=== PATIENT | male | born 1980 | race Caucasian/White ===

== ENCOUNTER 2016-07-18 17:33 | Inpatient (IN) | payer OTHER ==
[~2016-07-18] VITALS: Ht 185.4 cm; Wt 127.2 kg
[2016-07-18 19:00] LABS: BASO # 0.1 x10^3/uL (0.0-0.2); BASO % 2 % (0-3); EOS % 3 % (0-3); HEMATOCRIT 44.6 % (39.0-53.0); HEMOGLOBIN 15.5 g/dL (13.0-17.5); LYMPH % 22 % (24-48); MEAN CORPUSCULAR HEMOGLOBIN 29 pg (25-35); MEAN CORPUSCULAR HGB CONC 35 g/dL (31-37); MEAN CORPUSCULAR VOLUME 84 fL (79-100); MONO % 8 % (0-9); NEUT % 66 % (31-73); PLATELET COUNT 230 x10^3/uL (140-400); RED BLOOD COUNT 5.32 x10^6/uL (4.30-5.70); RED CELL DISTRIBUTION WIDTH 14.1 % (11.5-14.5); WHITE BLOOD COUNT 9.1 x10^3/uL (4.0-11.0)
[2016-07-18] MEDS ORDERED: LIDO:MAALOX:DONNATAL 1:1:1 15 ML SINGLE DOSE SWSW ONE (19:00)
[2016-07-18] MEDS ORDERED: LABETALOL 20 MG/4 ML DISP.SYRIN. IVP ONE (19:00)
[2016-07-18 19:06] LABS: CALCIUM 8.9 mg/dL (8.5-10.1); CREATININE 0.8 mg/dL (0.7-1.3); GFR 111.3; POTASSIUM 3.6 mmol/L (3.5-5.1)
[2016-07-18 19:16] LABS: ALBUMIN 3.9 g/dL (3.4-5.0); TOTAL BILIRUBIN 0.4 mg/dL (0.2-1.0); TOTAL PROTEIN 7.9 g/dL (6.4-8.2)
[2016-07-18 19:20] LABS: % EOS 2 % (0-5)
[2016-07-18 19:21] LABS: PLT ESTIMATE ADEQUATE (ADEQUATE)
[2016-07-18] MEDS ORDERED: hydrALAZINE 20 MG/ML VIAL. IVP ONE (20:30)
[2016-07-18] MEDS: NICARDIPINE HCL 50 MG in IV NORMAL SALINE 250ML 250 ML IV PRN (21:10)
--- NOTE | 2016-07-18 21:19 | PHYS DOC ---
Past Medical History Past Medical History: No Pertinent History Past Surgical History: No Surgical History Alcohol Use: None Drug Use: None Adult General Chief Complaint Chief Complaint: CHEST PAIN HPI HPI Patient is a 35 year old obese male who denies any chronic medical history who presents complaining of chest pain for 2 days. Yesterday the pain was a sharp pain in the right side of his chest. Today it is migrated to the middle of his chest just above the epigastric region. Pain is worse with deep breathing and movement of torso. 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 He has a mild cough. Denies shortness of breath, fever , nausea, vomiting, diarrhea, confusion, headache, blurry vision, motor weakness , or sensory loss. His blood pressure is very high. He was seen in the emergency department here previously and his blood pressure was high at that time he was instructed to follow up with the primary care doctor, which she never did. He denies the use of illicit drugs, alcohol, or tobacco. Remaining relatively still seems to make his pain better. Review of Systems Review of Systems Constitutional: Denies fever or chills Eyes: Denies change in visual acuity, redness, or eye pain HENT: Denies nasal congestion or sore throat Respiratory: Denies cough or shortness of breath Cardiovascular: Reports chest pain. Denies palpitations. GI: Denies abdominal pain, nausea, vomiting, bloody stools or diarrhea : Denies dysuria or hematuria Musculoskeletal: Denies back pain or joint pain Integument: Denies rash or skin lesions Neurologic: Denies headache, focal weakness or sensory changes Current Medications Current Medications Current Medications Medications (Trade) Dose Ordered Sig/Connie Start Time Stop Time Status Last Admin Dose Admin Hydralazine HCl 10 mg 10 mg 1X ONCE 07/18/16 20:30 07/18/16 20:32 DC 07/18/16 20:39 10 MG Labetalol HCl (Normodyne) 20 mg 1X ONCE 07/18/16 19:00 07/18/16 19:01 DC 07/18/16 19:12 20 MG Multi-Ingredient Mouthwash/Gargle (Gi Cocktail Single Dose) 15 ml 1X ONCE 07/18/16 19:00 07/18/16 19:01 DC 07/18/16 19:11 15 ML Nicardipine HCl/ Sodium Chloride (Cardene/Iv Sodium Chloride 0.9% 250ml) 270 ml @ 0 mls/hr CONT PRN 07/18/16 21:00 07/18/16 21:10 5 MLS/HR Allergies Allergies Allergies Coded Allergies Type Severity Reaction Last Updated Verified No Known Drug Allergies 09/07/15 No Physical Exam Physical Exam Constitutional: Well developed, well nourished, no acute distress, non-toxic appearance. HENT: Normocephalic, atraumatic, bilateral external ears normal, oropharynx moist, no oral exudates, nose normal. Eyes: PERRLA, EOMI, conjunctiva normal, no discharge. Neck: Normal range of motion, no tenderness, supple, no stridor. Cardiovascular:Heart rate regular rhythm, no murmur Lungs & Thorax: Bilateral breath sounds clear to auscultation. Reproducible chest wall tenderness around the lower sternum. Abdomen: Bowel sounds normal, soft, no tenderness, no masses, no pulsatile masses. Skin: Warm, dry, no erythema, no rash. Back: No tenderness, no CVA tenderness. Extremities: No tenderness, no cyanosis, no clubbing, ROM intact. Trace edema bilateral lower legs. Neurologic: Alert and oriented X 3, normal motor function, normal sensory function, no focal deficits noted. Psychologic: Affect normal, judgement normal, mood normal. Current Patient Data Vital Signs Vital Signs Date Time Temp Pulse Resp B/P Pulse Ox O2 Delivery O2 Flow Rate FiO2 07/18/16 20:39 80 194/114 07/18/16 20:12 16 97 Room Air 07/18/16 18:15 98.0 98.0 Lab Values Laboratory Tests Test 07/18/16 18:40 White Blood Count 9.1x10^3/uL (4.0-11.0) Red Blood Count 5.32x10^6/uL (4.30-5.70) Hemoglobin 15.5g/dL (13.0-17.5) Hematocrit 44.6% (39.0-53.0) Mean Corpuscular Volume 84fL (79-100) Mean Corpuscular Hemoglobin 29pg (25-35) Mean Corpuscular Hemoglobin Concent 35g/dL (31-37) Red Cell Distribution Width 14.1% (11.5-14.5) Platelet Count 230x10^3/uL (140-400) Neutrophils (%) (Auto) 66% (31-73) Lymphocytes (%) (Auto) 22% (24-48) L Monocytes (%) (Auto) 8% (0-9) Eosinophils (%) (Auto) 3% (0-3) Basophils (%) (Auto) 2% (0-3) Neutrophils # (Auto) 6.1x10^3uL (1.8-7.7) Lymphocytes # (Auto) 2.0x10^3/uL (1.0-4.8) Monocytes # (Auto) 0.7x10^3/uL (0.0-1.1) Eosinophils # (Auto) 0.2x10^3/uL (0.0-0.7) Basophils # (Auto) 0.1x10^3/uL (0.0-0.2) Segmented Neutrophils % 76% (35-66) H Band Neutrophils % 3% (0-9) Lymphocytes % 15% (24-48) L Monocytes % 4% (0-10) Eosinophils % 2% (0-5) Platelet Estimate Adequate (ADEQUATE) Sodium Level 141mmol/L (136-145) Potassium Level 3.6mmol/L (3.5-5.1) Chloride Level 105mmol/L (98-107) Carbon Dioxide Level 29mmol/L (21-32) Anion Gap 7 (6-14) Blood Urea Nitrogen 19mg/dL (8-26) Creatinine 0.8mg/dL (0.7-1.3) Estimated GFR (Cockcroft-Gault) 111.3 BUN/Creatinine Ratio 24 (6-20) H Glucose Level 89mg/dL (70-99) Calcium Level 8.9mg/dL (8.5-10.1) Total Bilirubin 0.4mg/dL (0.2-1.0) Aspartate Amino Transferase (AST) 25U/L (15-37) Alanine Aminotransferase (ALT) 55U/L (16-63) Alkaline Phosphatase 135U/L (46-116) H Troponin I Quantitative 0.027ng/mL (0.000-0.055) Total Protein 7.9g/dL (6.4-8.2) Albumin 3.9g/dL (3.4-5.0) Albumin/Globulin Ratio 1.0 (1.0-1.7) Lipase 133U/L (73-393) Laboratory Tests 07/18/16 18:40 Laboratory Tests 07/18/16 18:40 EKG EKG EKG: Sinus rhythm. Left axis deviation. Incomplete right bundle branch block. T-wave inversion in V6, aVL, and possibly I. No acute ST segment elevation or depression. EKG interpreted by me. Radiology/Procedures Radiology/Procedures Chest x-ray, AP single view: No acute infiltrate, effusion, or pneumothorax. Normal cardiomediastinal silhouette. Normal bony anatomy. No acute findings in chest. X-ray interpreted by me. Course & Med Decision Making Course & Med Decision Making Pertinent Labs and Imaging studies reviewed. (See chart for details) Patient has severely elevated blood pressures. He is still dangerously hypertensive even after 20 mg IV labetalol 10 mg IV hydralazine. His chest pain sounds somewhat musculoskeletal and/or pleuritic in nature, but given his dangerously elevated blood pressures I believe he will require admission to the hospital. I started him on nicardipine drip for blood pressure control. I discussed this case with Dr. Lisa who agreed to admit the patient for further management. His EKG showed some possible T wave inversions in the lateral leads. Otherwise, EKG looked okay. His first troponin is not elevated above the cutoff. Chest x-ray is unrevealing. The rest of his labs are fairly unremarkable. Dragon Disclaimer Dragon Disclaimer This electronic medical record was generated, in whole or in part, using a voice recognition dictation system. Departure Departure Impression: Primary Impression: Malignant essential hypertension Disposition: 09 ADMITTED INPATIENT Admitting Physician: Other Condition: STABLE Referrals: NO PCP (PCP) AUNDREA CASILLAS MD Jul 18, 2016 18:56
[2016-07-18] MEDS ORDERED: ONDANSETRON PF 4 MG/2 ML VIAL. IV PRN (21:30)
--- NOTE | 2016-07-18 22:27 | ACF ---
Admission Forms Criteria HYPERTENSION Clinical Indications for Admission to Inpatient Care ( Place "X" for any and all applicable criteria): Admission is indicated for ANY ONE of the following(1)(2)(3)(4): [ ]I. Hypertensive emergency, with evidence of acute and progressing target organ disease as indicated by ANY ONE of the following: [ ]a) Hypertensive encephalopathy (eg, confusion, altered mental status) [ ]b) Cerebral infarction [ ]c) Intracranial hemorrhage [ ]d) Myocardial ischemia or infarction [ ]e) Pulmonary edema [ ]f) Aortic dissection [ ]g) Seizure [ ]h) Acute renal insufficiency [ ]i) Papilledema [ ]j) Microangiopathic hemolytic anemia [ ]II. Adrenergic crisis (eg, severe hypertension due to pheochromocytoma crisis, cocaine or amphetamine intoxication, or clonidine withdrawal) [X]III. Severe hypertension (SBP greater than 180 mmHg or DBP greater than 110 mmHg or greater than the 95th percentile for age, gender, and height in pediatric patients) that cannot be controlled (eg, to SBP less than 160 mmHg and DBP less than 100 mmHg in adults) by treatment with oral medication in emergency department or observation care Extended stay beyond goal length of stay may be needed for(11)(12)(13): [ ]a) Persistent hypertensive encephalopathy [ ]b) Continuation of pulmonary edema [ ]c) Recurring or persistent severe hypertension [ ]d) Target organ damage (eg, angina, stroke, aortic dissection) [ ]e) Associated renal insufficiency The original [facility] content created by [employer] has been revised. The portions of the content which have been revised are identified through the use of italic text or in bold, and [facility] has neither reviewed nor approved the modified material. All other unmodified content is copyright [facility]. Please see references footnoted in the original [facility] edition 2016 Admission Criteria Met?: Yes XIMENA DOWNS Jul 18, 2016 22:27
[2016-07-18 23:00] VITALS: BP 208/113
[2016-07-18 23:15] VITALS: BP 222/113
[2016-07-18 23:30] VITALS: BP 180/84
[2016-07-18 23:45] VITALS: BP 173/85
[2016-07-19] VITALS (34 sets, daily range): BP systolic 133–192; BP diastolic 65–103
[2016-07-19] MEDS: NICARDIPINE HCL 50 MG in IV NORMAL SALINE 250ML 250 ML IV PRN (03:11)
--- NOTE | 2016-07-19 06:55 | EKG ---
[facility] [address] [place] [address] Test Date: 2016-07-18 Test Time: 18:12:02 Pat Name: ANDRE BOO Department: Room: 104 1 Gender: M Computer Repairer: : 1980 Requested By: AUNDREA CASILLAS Order Number: [id number] Reading MD: Zhane Rousseau Measurements Intervals [place] Rate: 93 P: -1 TN: 124 QRS: -7 QRSD: 108 T: 61 QT: 346 QTc: 433 Interpretive Statements SINUS RHYTHM LEFT ATRIAL ABNORMALITY LEFTWARD AXIS ABNORMAL ECG RI6.01 No previous ECG available for comparison Electronically Signed On 07-21-2016 0:23:20 RESIDENT SERVICES MANAGER by Zhane Rousseau
[2016-07-19] MEDS: AMLODIPINE BESYLATE 10 MG TABLET PO SCH (08:53)
--- NOTE | 2016-07-19 09:20 | RAD ---
Portable chest, 07/18/2016: History: Chest pain Comparison is made to a study from 11/18/2007. The heart size and pulmonary vascularity are normal. No pulmonary infiltrates are seen. There is no evidence of pleural fluid. IMPRESSION: No acute cardiopulmonary abnormality is detected.
[2016-07-19] MEDS: METOPROLOL SUCC 24HR ER 50 MG TAB.ER.24H. PO SCH ×2 (14:00→21:18)
[2016-07-19] MEDS ORDERED: hydrALAZINE 20 MG/ML VIAL. IVP PRN (17:45)
[2016-07-20 03:50] VITALS: BP 160/93
[2016-07-20 07:00] VITALS: BP 166/101
[2016-07-20 07:18] LABS: BASO # 0.1 x10^3/uL (0.0-0.2); BASO % 1 % (0-3); EOS % 3 % (0-3); HEMATOCRIT 44.3 % (39.0-53.0); HEMOGLOBIN 14.9 g/dL (13.0-17.5); LYMPH # 1.6 x10^3/uL (1.0-4.8); LYMPH % 19 % (24-48); MEAN CORPUSCULAR HEMOGLOBIN 29 pg (25-35); MEAN CORPUSCULAR HGB CONC 34 g/dL (31-37); MEAN CORPUSCULAR VOLUME 85 fL (79-100); MONO % 7 % (0-9); NEUT % 70 % (31-73); PLATELET COUNT 248 x10^3/uL (140-400); RED BLOOD COUNT 5.22 x10^6/uL (4.30-5.70); WHITE BLOOD COUNT 8.6 x10^3/uL (4.0-11.0)
[2016-07-20 07:28] LABS: CALCIUM 9.1 mg/dL (8.5-10.1); GFR 86.1; POTASSIUM 3.6 mmol/L (3.5-5.1)
[2016-07-20 07:38] LABS: BARBITURATES NEG (NEG); BENZODIAZEPINES NEG (NEG); CANNABINOIDS NEG (NEG); COCAINE NEG (NEG); METHADONE NEG (NEG); OPIATES NEG (NEG); PHENCYCLIDINE NEG (NEG)
[2016-07-20 07:44] LABS: ETHANOL, URINE NEG (NEG)
[2016-07-20] MEDS: METOPROLOL SUCC 24HR ER 50 MG TAB.ER.24H. PO SCH (08:26)
[2016-07-20 08:27] VITALS: BP 166/101
[2016-07-20] MEDS: AMLODIPINE BESYLATE 10 MG TABLET PO SCH (08:27)
[2016-07-20] MEDS ORDERED: LISINOPRIL 10 MG TABLET PO SCH (09:00)
--- NOTE | 2016-07-20 09:15 | HP ---
ADMIT DATE: 07/19/2016 CHIEF COMPLAINT: Chest pain. HISTORY OF PRESENT ILLNESS: The patient is a pleasant, healthy 35-year-old male who presents to the ER with chest pain earlier this morning. He states it has been occurring for a couple of days, it was in his right chest. They migrate to the middle of his chest. He had some epigastric pain as well, it was worse with breathing. While in the ER, he was noted to have accelerated hypertension with pressures in the 240 range systolically. Troponins were slightly elevated at 0.027. He has now been admitted to the ICU where I examined him earlier this morning. PAST MEDICAL HISTORY: He denies any medical issues. ALLERGIES: None. FAMILY HISTORY: Hypertension. SOCIAL HISTORY: Does not drink, smoke or take drugs. MEDICATIONS: He is not on any medications. REVIEW OF SYSTEMS: GENERAL: No history of weight change, weakness or fevers. SKIN: No bruising, hair changes or rashes. EYES: No blurred, double or loss of vision. NOSE AND THROAT: No history of nosebleeds, hoarseness or sore throat. HEART: He complains of resolving chest pain. LUNGS: Denies cough, hemoptysis, wheezing or shortness of breath. GASTROINTESTINAL: Denies changes in appetite, nausea, vomiting, diarrhea or constipation. GENITOURINARY: No history of frequency, urgency, hesitancy or nocturia. NEUROLOGIC: Denies history of numbness, tingling, tremor or weakness. PSYCHIATRIC: No history of panic, anxiety or depression. ENDOCRINE: No history of heat or cold intolerance, polyuria or polydipsia. EXTREMITIES: Denies muscle weakness, joint pain, pain on walking or stiffness. PHYSICAL EXAMINATION: VITAL SIGNS: Temperature afebrile, pulse 90, respirations 18, blood pressure this morning was down to 165/93. He was on a Cardene drip. HEART: Distant S1, S2. LUNGS: Clear to auscultation. ABDOMEN: Soft, positive bowel sounds. EXTREMITIES: Trace edema. SKIN: No rashes. PSYCHIATRIC: He is anxious. VASCULAR: Good capillary refill. ENDOCRINE: No thyromegaly. LYMPHATICS: No cervical nodes. HEMATOPOIETIC: No bruising. LABORATORY DATA: Hematology normal. Electrolytes normal other than a BUN and creatinine ratio of 24. Alkaline phosphatase a little high at 135. Troponin was 0.027. It did bump this afternoon a little bit higher to 0.08. ASSESSMENT AND PLAN: Accelerated hypertension with an incidental finding of elevated troponins. The patient has been on a Cardene drip. I have started him on metoprolol and Norvasc that seems to be bringing his pressure down. Regarding the elevated cardiac enzymes, we will go ahead and consult cardiology, cardiac monitoring. We will adjust his antihypertensives as necessary. EVA GARDINER DO DR: PETER/soren JOB#: [id number] / [id number]
--- NOTE | 2016-07-20 10:24 | PDOC ---
PROGRESS NOTES Chief Complaint Chief Complaint chest pain -accelerated hypertension -mildly elevated troponin History of Present Illness History of Present Illness Patient sitting up in bed when evaluated this AM. Feels much improved. BP improved and chest pain resolved. Pt agreeable with plan to dc when cleared by cardiology. Prescriptions given for home management of BP, and stressed to the pt the importance of taking the medications as prescribed. Pt aware that uncontrolled BP could yield unfortunate consequences as the pt ages. Vitals Vitals Vital Signs Date Time Temp Pulse Resp B/P Pulse Ox O2 Delivery O2 Flow Rate FiO2 07/20/16 08:27 99 166/101 07/20/16 08:00 Room Air 07/20/16 07:00 98.2 18 96 98.2 Physical Exam General: Alert, Oriented X3, No acute distress Heart: Regular rate, Other (distant S1, S2) Lungs: Clear Abdomen: Normal bowel sounds, Soft, No tenderness Extremities: Other (trace edema) Skin: No significant lesion Labs LABS Laboratory Tests Test 07/20/16 03:00 07/20/16 05:45 Urine Opiates Screen Neg (NEG) Urine Methadone Screen Neg (NEG) Urine Barbiturates Neg (NEG) Urine Phencyclidine Screen Neg (NEG) Urine Amphetamine/Methamphetamine Neg (NEG) Urine Benzodiazepines Screen Neg (NEG) Urine Cocaine Screen Neg (NEG) Urine Cannabinoids Screen Neg (NEG) Urine Ethyl Alcohol Neg (NEG) White Blood Count 8.6x10^3/uL (4.0-11.0) Red Blood Count 5.22x10^6/uL (4.30-5.70) Hemoglobin 14.9g/dL (13.0-17.5) Hematocrit 44.3% (39.0-53.0) Mean Corpuscular Volume 85fL (79-100) Mean Corpuscular Hemoglobin 29pg (25-35) Mean Corpuscular Hemoglobin Concent 34g/dL (31-37) Red Cell Distribution Width 14.0% (11.5-14.5) Platelet Count 248x10^3/uL (140-400) Neutrophils (%) (Auto) 70% (31-73) Lymphocytes (%) (Auto) 19% (24-48) Monocytes (%) (Auto) 7% (0-9) Eosinophils (%) (Auto) 3% (0-3) Basophils (%) (Auto) 1% (0-3) Neutrophils # (Auto) 6.0x10^3uL (1.8-7.7) Lymphocytes # (Auto) 1.6x10^3/uL (1.0-4.8) Monocytes # (Auto) 0.6x10^3/uL (0.0-1.1) Eosinophils # (Auto) 0.3x10^3/uL (0.0-0.7) Basophils # (Auto) 0.1x10^3/uL (0.0-0.2) Sodium Level 142mmol/L (136-145) Potassium Level 3.6mmol/L (3.5-5.1) Chloride Level 104mmol/L (98-107) Carbon Dioxide Level 28mmol/L (21-32) Anion Gap 10 (6-14) Blood Urea Nitrogen 16mg/dL (8-26) Creatinine 1.0mg/dL (0.7-1.3) Estimated GFR (Cockcroft-Gault) 86.1 Glucose Level 94mg/dL (70-99) Calcium Level 9.1mg/dL (8.5-10.1) Review of Systems Review of Systems resolved chest pain denies fever, chills, SOA Assessment and Plan Assessmemt and Plan ASSESSMENT: -chest pain; resolved -accelerated hypertension; improved -mildly elevated troponin; cardiology following PLAN: - ok to dc when ok by cardiology; following cardiac markers - educated pt on the need to comply with BP med - home with Norvasc 10 mg qd - home with Metoprolol 50 mg bid - home with Lisinopril 10 mg qd - repeat labs if not dc'd - PT/OT as tolerated if not dc'd Problems: Comment Review of Relevant I have reviewed the following items leyla (where applicable) has been applied. Labs Laboratory Tests Test 07/18/16 18:40 07/18/16 23:00 07/19/16 03:17 07/19/16 09:05 White Blood Count 9.1x10^3/uL (4.0-11.0) Red Blood Count 5.32x10^6/uL (4.30-5.70) Hemoglobin 15.5g/dL (13.0-17.5) Hematocrit 44.6% (39.0-53.0) Mean Corpuscular Volume 84fL (79-100) Mean Corpuscular Hemoglobin 29pg (25-35) Mean Corpuscular Hemoglobin Concent 35g/dL (31-37) Red Cell Distribution Width 14.1% (11.5-14.5) Platelet Count 230x10^3/uL (140-400) Neutrophils (%) (Auto) 66% (31-73) Lymphocytes (%) (Auto) 22% (24-48) Monocytes (%) (Auto) 8% (0-9) Eosinophils (%) (Auto) 3% (0-3) Basophils (%) (Auto) 2% (0-3) Neutrophils # (Auto) 6.1x10^3uL (1.8-7.7) Lymphocytes # (Auto) 2.0x10^3/uL (1.0-4.8) Monocytes # (Auto) 0.7x10^3/uL (0.0-1.1) Eosinophils # (Auto) 0.2x10^3/uL (0.0-0.7) Basophils # (Auto) 0.1x10^3/uL (0.0-0.2) Segmented Neutrophils % 76% (35-66) Band Neutrophils % 3% (0-9) Lymphocytes % 15% (24-48) Monocytes % 4% (0-10) Eosinophils % 2% (0-5) Platelet Estimate Adequate (ADEQUATE) Sodium Level 141mmol/L (136-145) Potassium Level 3.6mmol/L (3.5-5.1) Chloride Level 105mmol/L (98-107) Carbon Dioxide Level 29mmol/L (21-32) Anion Gap 7 (6-14) Blood Urea Nitrogen 19mg/dL (8-26) Creatinine 0.8mg/dL (0.7-1.3) Estimated GFR (Cockcroft-Gault) 111.3 BUN/Creatinine Ratio 24 (6-20) Glucose Level 89mg/dL (70-99) Calcium Level 8.9mg/dL (8.5-10.1) Total Bilirubin 0.4mg/dL (0.2-1.0) Aspartate Amino Transf (AST/SGOT) 25U/L (15-37) Alanine Aminotransferase (ALT/SGPT) 55U/L (16-63) Alkaline Phosphatase 135U/L (46-116) Troponin I Quantitative 0.027ng/mL (0.000-0.055) 0.049ng/mL (0.000-0.055) 0.088ng/mL (0.000-0.055) Total Protein 7.9g/dL (6.4-8.2) Albumin 3.9g/dL (3.4-5.0) Albumin/Globulin Ratio 1.0 (1.0-1.7) Lipase 133U/L (73-393) Nasal Screen MRSA (PCR) Negative (Negative) Test 07/20/16 03:00 07/20/16 05:45 Urine Opiates Screen Neg (NEG) Urine Methadone Screen Neg (NEG) Urine Barbiturates Neg (NEG) Urine Phencyclidine Screen Neg (NEG) Urine Amphetamine/Methamphetamine Neg (NEG) Urine Benzodiazepines Screen Neg (NEG) Urine Cocaine Screen Neg (NEG) Urine Cannabinoids Screen Neg (NEG) Urine Ethyl Alcohol Neg (NEG) White Blood Count 8.6x10^3/uL (4.0-11.0) Red Blood Count 5.22x10^6/uL (4.30-5.70) Hemoglobin 14.9g/dL (13.0-17.5) Hematocrit 44.3% (39.0-53.0) Mean Corpuscular Volume 85fL (79-100) Mean Corpuscular Hemoglobin 29pg (25-35) Mean Corpuscular Hemoglobin Concent 34g/dL (31-37) Red Cell Distribution Width 14.0% (11.5-14.5) Platelet Count 248x10^3/uL (140-400) Neutrophils (%) (Auto) 70% (31-73) Lymphocytes (%) (Auto) 19% (24-48) Monocytes (%) (Auto) 7% (0-9) Eosinophils (%) (Auto) 3% (0-3) Basophils (%) (Auto) 1% (0-3) Neutrophils # (Auto) 6.0x10^3uL (1.8-7.7) Lymphocytes # (Auto) 1.6x10^3/uL (1.0-4.8) Monocytes # (Auto) 0.6x10^3/uL (0.0-1.1) Eosinophils # (Auto) 0.3x10^3/uL (0.0-0.7) Basophils # (Auto) 0.1x10^3/uL (0.0-0.2) Sodium Level 142mmol/L (136-145) Potassium Level 3.6mmol/L (3.5-5.1) Chloride Level 104mmol/L (98-107) Carbon Dioxide Level 28mmol/L (21-32) Anion Gap 10 (6-14) Blood Urea Nitrogen 16mg/dL (8-26) Creatinine 1.0mg/dL (0.7-1.3) Estimated GFR (Cockcroft-Gault) 86.1 Glucose Level 94mg/dL (70-99) Calcium Level 9.1mg/dL (8.5-10.1) Laboratory Tests Test 07/20/16 03:00 07/20/16 05:45 Urine Opiates Screen Neg (NEG) Urine Methadone Screen Neg (NEG) Urine Barbiturates Neg (NEG) Urine Phencyclidine Screen Neg (NEG) Urine Amphetamine/Methamphetamine Neg (NEG) Urine Benzodiazepines Screen Neg (NEG) Urine Cocaine Screen Neg (NEG) Urine Cannabinoids Screen Neg (NEG) Urine Ethyl Alcohol Neg (NEG) White Blood Count 8.6x10^3/uL (4.0-11.0) Red Blood Count 5.22x10^6/uL (4.30-5.70) Hemoglobin 14.9g/dL (13.0-17.5) Hematocrit 44.3% (39.0-53.0) Mean Corpuscular Volume 85fL (79-100) Mean Corpuscular Hemoglobin 29pg (25-35) Mean Corpuscular Hemoglobin Concent 34g/dL (31-37) Red Cell Distribution Width 14.0% (11.5-14.5) Platelet Count 248x10^3/uL (140-400) Neutrophils (%) (Auto) 70% (31-73) Lymphocytes (%) (Auto) 19% (24-48) Monocytes (%) (Auto) 7% (0-9) Eosinophils (%) (Auto) 3% (0-3) Basophils (%) (Auto) 1% (0-3) Neutrophils # (Auto) 6.0x10^3uL (1.8-7.7) Lymphocytes # (Auto) 1.6x10^3/uL (1.0-4.8) Monocytes # (Auto) 0.6x10^3/uL (0.0-1.1) Eosinophils # (Auto) 0.3x10^3/uL (0.0-0.7) Basophils # (Auto) 0.1x10^3/uL (0.0-0.2) Sodium Level 142mmol/L (136-145) Potassium Level 3.6mmol/L (3.5-5.1) Chloride Level 104mmol/L (98-107) Carbon Dioxide Level 28mmol/L (21-32) Anion Gap 10 (6-14) Blood Urea Nitrogen 16mg/dL (8-26) Creatinine 1.0mg/dL (0.7-1.3) Estimated GFR (Cockcroft-Gault) 86.1 Glucose Level 94mg/dL (70-99) Calcium Level 9.1mg/dL (8.5-10.1) Medications Current Medications Labetalol HCl (Normodyne) 20 mg 1X ONCE IVP Last administered on 07/18/16 19: 12; Start 07/18/16 at 19:00; Stop 07/18/16 at 19:01; Status DC Multi-Ingredient Mouthwash/Gargle (Gi Cocktail Single Dose) 15 ml 1X ONCE SWSW Last administered on 07/18/16 19:11; Start 07/18/16 at 19:00; Stop 07/18/16 at 19:01; Status DC Hydralazine HCl 10 mg 10 mg 1X ONCE IVP Last administered on 07/18/16 20:39; Start 07/18/16 at 20:30; Stop 07/18/16 at 20:32; Status DC Nicardipine HCl/ Sodium Chloride (Cardene/Iv Sodium Chloride 0.9% 250ml) 270 ml @ 0 mls/hr CONT PRN IV SEE I/O RECORD Last administered on 07/19/16 03:11; Start 07/18/16 at 21:00 Ondansetron HCl (Zofran) 4 mg PRN Q8HRS PRN IV NAUSEA/VOMITING; Start 07/18/16 at 21:30; Stop 07/19/16 at 21:29; Status DC Amlodipine Besylate (Norvasc) 10 mg DAILY PO Last administered on 07/20/16 08: 27; Start 07/19/16 at 09:00 Metoprolol Succinate (Toprol Xl) 50 mg BID PO Last administered on 07/20/16 08 :26; Start 07/19/16 at 14:30 Hydralazine HCl (Apresoline) 10 mg PRN Q4HRS PRN IVP ELEVATED BP, SEE COMMENTS Last administered on 07/19/16 18:07; Start 07/19/16 at 17:45 Lisinopril (Prinivil) 10 mg DAILY PO Last administered on 07/20/16 08:27; Start 07/20/16 at 09:00 Vitals/I & O Vital Sign - Last 24 Hours 07/19/16 07/19/16 07/19/16 07/19/16 10:30 11:00 11:30 12:00 Pulse 101 101 91 97 Resp 14 15 15 17 B/P 174/93 181/99 178/97 189/99 Pulse Ox 94 96 97 95 O2 Delivery Room Air Room Air Room Air Room Air 07/19/16 07/19/16 07/19/16 07/19/16 12:00 12:30 13:00 13:30 Pulse 101 94 98 Resp 17 16 18 B/P 192/99 170/92 160/94 Pulse Ox 97 94 96 O2 Delivery Room Air Room Air Room Air Room Air 07/19/16 07/19/16 07/19/16 07/19/16 14:00 14:00 14:30 15:00 Pulse 100 102 96 100 Resp 18 14 11 B/P 158/96 168/98 176/86 150/94 Pulse Ox 96 94 97 O2 Delivery Room Air Room Air Room Air 07/19/16 07/19/16 07/19/16 07/19/16 15:30 16:00 17:20 18:07 Pulse 98 96 96 Resp 19 24 B/P 168/94 189/103 189/103 Pulse Ox 96 93 O2 Delivery Room Air Room Air Room Air 07/19/16 07/19/16 07/19/16 07/19/16 18:14 18:40 19:46 21:18 Pulse 102 95 B/P 175/91 153/81 166/83 Pulse Ox 93 O2 Delivery Room Air Room Air 07/19/16 07/20/16 07/20/16 07/20/16 23:40 03:50 07:00 08:00 Temp 97.8 98.4 98.2 97.8 98.4 98.2 Pulse 80 78 99 Resp 18 B/P 159/83 160/93 166/101 Pulse Ox 96 95 96 O2 Delivery Room Air Room Air Room Air Room Air 07/20/16 07/20/16 07/20/16 08:26 08:27 08:27 Pulse 99 99 99 B/P 166/101 166/101 166/101 Intake and Output 07/19/16 07/19/16 07/20/16 15:00 23:00 07:00 Intake Total 700 ml 500 ml 700 ml Output Total 3 ml Balance 700 ml 500 ml 697 ml EVA GARDINER III DO Jul 20, 2016 10:24
[2016-07-20] MEDS ORDERED: AMLO10TA4 PO (11:18)
[2016-07-20] MEDS ORDERED: METO50TA2 PO (11:19)
[2016-07-20] MEDS ORDERED: LISI10TA2 PO (11:19)
[2016-07-20] MEDS ORDERED: METOPROLOL TART IMMED RELEASE 50 MG TABLET PO SCH (21:00)
[2016-07-21] MEDS ORDERED: AMLODIPINE BESYLATE 10 MG TABLET PO SCH (09:00)
[2016-07-21] MEDS ORDERED: LISINOPRIL 10 MG TABLET PO SCH (09:00)
== END 2016-07-20 12:20 | disposition home or self-care (01) | DRG 392 ==
LOC: ER 17:33 → 5 SOUTH 20:36 → 1 WEST ICU 23:00 → 2 SOUTH 07-19 16:56
PROVIDERS: ADMIT Internal Medicine Hematology & Oncology; ATTEND Internal Medicine Hematology & Oncology
DX: K21.9 Gastro-esophageal reflux disease without esophagitis (principal); I10 Essential (primary) hypertension; E66.9 Obesity, unspecified; R07.89 Other chest pain; Z68.37 Body mass index [BMI] 37.0-37.9, adult; Z82.49 Family history of ischemic heart disease and other diseases of the circulatory system
CPT/HCPCS: 36415; 71010; 80048; 80053; 83690; 84484; 85007; 85027; 87641; 93005; 96374; 96375; G0481; J0360; J3490; J7050; 99285-25; J7030

== ENCOUNTER 2019-06-03 17:07 | Inpatient (IN) | payer OTHER ==
[~2019-06-03] VITALS: Ht 185.4 cm; Wt 124.3 kg
[~2019-06-03 17:07] MED LIST: AMLO10TA4 PO; LISI10TA2 PO; METO50TA6 PO
[2019-06-03] MEDS ORDERED: IV NORMAL SALINE 1000ML BAG 1,000 ML IV ONE (18:30)
[2019-06-03] MEDS ORDERED: VANCOMYCIN PER PHARMACY MC PRN (18:30)
[2019-06-03] MEDS ORDERED: fentaNYL PF VIAL 100 MCG/2 ML VIAL IVP ONE (18:45)
[2019-06-03] MEDS ORDERED: VANCOMYCIN 2 GM in IV NORMAL SALINE 500ML BAG 500 ML IV SCH (19:00)
[2019-06-03] MEDS ORDERED: ACETAMINOPHEN 325 MG TABLET. PO PRN (19:15)
[2019-06-03] MEDS ORDERED: fentaNYL PF VIAL 100 MCG/2 ML VIAL IV PRN (19:15)
[2019-06-03] MEDS ORDERED: ONDANSETRON PF 4 MG/2 ML VIAL. IV PRN (19:15)
--- NOTE | 2019-06-03 19:42 | PHYS DOC ---
Past Medical History Past Medical History: Hypertension Past Surgical History: No Surgical History Alcohol Use: None Drug Use: None Adult General Chief Complaint Chief Complaint: SKIN PROBLEM HPI HPI Patient is a 38 year old Male who presents with 3 days of right lower leg cellulitis. His pain an 8 out of 10 when up and walking but sitting he states he is fine. He states is a burning type pain. Review of Systems Review of Systems Integument: redness to right lower leg. Denies rash or skin lesions [] All other systems were reviewed and found to be within normal limits, except as documented in this note. Current Medications Current Medications Current Medications Medications (Trade) Dose Ordered Sig/Connie Start Time Stop Time Status Last Admin Dose Admin Sodium Chloride 1,000 ml @ 1,000 mls/hr 1X ONCE 06/03/19 18:30 06/03/19 19:29 DC 06/03/19 19:42 1,000 MLS/HR Vancomycin HCl (Vanco Per Pharmacy) 1 each PRN DAILY PRN 06/03/19 18:30 Allergies Allergies Allergies Coded Allergies Type Severity Reaction Last Updated Verified No Known Drug Allergies 09/07/15 No Physical Exam Physical Exam Constitutional: Well developed, well nourished, no acute distress, non-toxic appearance. [] HENT: Normocephalic, atraumatic, bilateral external ears normal, oropharynx moist, no oral exudates, nose normal. [] Eyes: PERRLA, EOMI, conjunctiva normal, no discharge. [] Neck: Normal range of motion, no tenderness, supple, no stridor. [] Cardiovascular:Heart rate regular rhythm, no murmur [] Lungs & Thorax: Bilateral breath sounds clear to auscultation [] Abdomen: Bowel sounds normal, soft, no tenderness, no masses, no pulsatile masses. [] Skin: Warm, dry, no erythema, no rash. Right lower leg calf cellulitis[] Extremities: Right calf tenderness, no cyanosis, no clubbing, ROM intact, 3+ edema. [] Neurologic: Alert and oriented X 3, normal motor function, normal sensory function, no focal deficits noted. [] Psychologic: Affect normal, judgement normal, mood normal. [] Current Patient Data Vital Signs Vital Signs Date Time Temp Pulse Resp B/P (MAP) Pulse Ox O2 Delivery O2 Flow Rate FiO2 06/03/19 17:44 98.6 73 16 170/95 (120) 100 Room Air 98.6 EKG EKG [] Radiology/Procedures Radiology/Procedures [] Impressions: [facility] [address] [place] [address] IMAGING REPORT Signed PATIENT: ANDRE BOOCCOUNT: [id number] : 1980 LOCATION: ER AGE: 38 SEX: M EXAM STATUS: REG ER ORD. PHYSICIAN: PETAR ALBERT APRN REASON: swelling PROCEDURE: VENOUS LOWER EXTREMITY RIGHT Exam: Right lower extremity venous duplex study INDICATION: Leg swelling TECHNIQUE: Using a combination of real-time ultrasound imaging and color-flow and pulse Doppler imaging techniques along with graded compression and augmentation, duplex evaluation of the deep venous systems of rightlower extremity was performed. Multiple images were obtained. Findings: There is no sonographic evidence for deep venous thrombosis involving the visualized deep venous structures of the right lower extremity. IMPRESSION: No acute DVT in the right lower extremity. Electronically signed by: Robby Workman MD (06/03/2019 8:06 PM) [facility] DICTATED and SIGNED BY: ROBBY WORKMAN MD DATE: 06/03/192005 Course & Med Decision Making Course & Med Decision Making 3+ edema to the right lower leg. Pedal pulses present. Patient has redness and blisters that are intact and non-draining the posterior part of the right lower leg. Denies fevers, nausea, vomiting, abdominal pain, dizziness, headache, shortness of breath, chest pain, numbness or tingling. Alert and oriented. Ambulatory with steady gait. States his only history is hypertension. I have spoken to Dr. Kern for admission. Dragon Disclaimer Dragon Disclaimer This electronic medical record was generated, in whole or in part, using a voice recognition dictation system. Departure Departure Impression: Primary Impression: Cellulitis Disposition: ADMITTED INPATIENT Admitting Physician: EFRAIN Condition: STABLE Referrals: Maria Eugenia CRUZ MD (PCP) Problem Qualifiers Primary Impression: Cellulitis Site of cellulitis: extremity Site of cellulitis of extremity: lower extremity Laterality: right Qualified Codes: L03.115 - Cellulitis of right lower limb PETAR ALBERT APRN Jun 03, 2019 19:42
[2019-06-03] MEDS ORDERED: ZOLPIDEM 5 MG TABLET. PO PRN (19:45)
[2019-06-03] MEDS ORDERED: ACETAMINOPHEN/CODEINE 300/30MG TABLET. PO PRN (19:45)
[2019-06-03] MEDS ORDERED: cloNIDine HCL 0.1 MG TABLET PO PRN (19:45)
[2019-06-03] MEDS ORDERED: ACETAMINOPHEN 500 MG TABLET PO PRN (19:45)
[2019-06-03] MEDS ORDERED: fentaNYL PF VIAL 100 MCG/2 ML VIAL IVP PRN (19:45)
--- NOTE | 2019-06-03 19:49 | PDOC1 ---
History and Physical Date of Admission Date of Admission DATE: 06/03/19 TIME: 19:45 Identification/Chief Complaint Chief Complaint RT leg apin and swelling since sunday Source Source: Caregiver, Chart review, Patient History of Present Illness History of Present Illness 38 white Male, hTN on meds, compliant, RT leg pain and swelling since sunday and rash, noted at work NON DM, never had similar prior episodes before, BAd foot hygiene, smells of athlete's foot, LAbs are still in process - admitted for need iV abx, PCP Dr Marisol Rushing. NOn toxic appearing<VS ok. US legs not yet done but ordered Past Medical History Cardiovascular: HTN Past Surgical History Past Surgical History: No pertinent history Family History Family History: Hypertension Social History Smoke: No ALCOHOL: none Drugs: None Current Medications Current Medications Current Medications Sodium Chloride 1,000 ml @ 1,000 mls/hr 1X ONCE IV Last administered on 06/03/19at 19:42; Start 06/03/19 at 18:30; Stop 06/03/19 at 19:29; Status DC Vancomycin HCl (Vanco Per Pharmacy) 1 each PRN DAILY PRN MC SEE COMMENTS; Start 06/03/19 at 18:30 Fentanyl Citrate (Fentanyl 2ml Vial) 50 mcg 1X ONCE IVP ; Start 06/03/19 at 18:45; Stop 06/03/19 at 18:46; Status DC Vancomycin HCl 2 gm/Sodium Chloride 500 ml @ 250 mls/hr Q24H IV Last admini stered on 06/03/19at 19:25; Start 06/03/19 at 19:00; Stop 06/03/19 at 20:59 Ondansetron HCl (Zofran) 4 mg PRN Q8HRS PRN IV NAUSEA/VOMITING; Start 06/03/19 at 19:15; Stop 06/04/19 at 19:14 Fentanyl Citrate (Fentanyl 2ml Vial) 50 mcg PRN Q1HR PRN IV PAIN; Start 06/03/19 at 19:15; Stop 06/04/19 at 19:14 Acetaminophen (Tylenol) 650 mg PRN Q4HRS PRN PO FEVER; Start 06/03/19 at 19:15; Stop 06/04/19 at 19:14 Acetaminophen (Tylenol) 500 mg PRN Q6HRS PRN PO MILD PAIN / TEMP; Start 06/03/19 at 19:45; Status UNV Acetaminophen/ Codeine Phosphate (Tylenol #3) 1 tab PRN Q6HRS PRN PO PAIN; Start 06/03/19 at 19:45; Status UNV Fentanyl Citrate (Fentanyl 2ml Vial) 50 mcg PRN Q2HR PRN IVP PAIN; Start 06/03/19 at 19:45; Status UNV Zolpidem Tartrate (Ambien) 5 mg PRN QHS PRN PO INSOMNIA; Start 06/03/19 at 19:45; Status UNV Amlodipine Besylate (Norvasc) 10 mg DAILY PO ; Start 06/04/19 at 09:00; Status UNV Metoprolol Tartrate (Lopressor) 50 mg BID PO ; Start 06/03/19 at 21:00; Status UNV Lisinopril (Prinivil) 40 mg DAILY PO ; Start 06/04/19 at 09:00; Status UNV Active Scripts Active Reported Lisinopril 10 Mg Tablet 10 Mg PO DAILY Metoprolol Tartrate 50 Mg Tablet 50 Mg PO BID Norvasc (Amlodipine Besylate) 10 Mg Tablet 10 Mg PO DAILY Allergies Allergies: Coded Allergies: No Known Drug Allergies (Unverified , 09/07/15) ROS Review of System rt leg pain, no skin breaks, all else 14 pt neg Physical Exam General: Alert, Oriented X3, Cooperative, No acute distress HEENT: Atraumatic, PERRLA, EOMI Lungs: Clear to auscultation, Normal air movement Heart: S1S2, RRR, no thrills, no rubs, no gallops, no murmurs Cardiovascular: S1, S2 Abdomen: Normal bowel sounds, Soft, No tenderness, No hepatosplenomegaly, No masses Male Genitals Exam: normal genitalia, normal prostate Extremities: No clubbing, No cyanosis, No edema, Normal pulses, No tenderness/swelling Skin: Other (rt leg rash, ,maculopapulrar, elevated, appreciable to touch, no skin breaks, bad smelly foot, poor hygiene, no skin breaks, baseline red bed) Neuro: Normal gait, Normal speech, Strength at 5/5 X4 ext, Normal tone, Sensation intact, Cranial nerves 3-12 NL Psych/Mental Status: Mental status NL, Mood NL Vitals Vitals Vital Signs Date Time Temp Pulse Resp B/P (MAP) Pulse Ox O2 Delivery O2 Flow Rate FiO2 06/03/19 17:44 98.6 73 16 170/95 (120) 100 Room Air 98.6 VTE Prophylaxis Ordered VTE Prophylaxis Devices: Yes VTE Pharmacological Prophylaxi: Yes Assessment/Plan Assessment/Plan RT leg cellulitis, no skin breaks Athelet/s foot HTN controlled Obesity BMI 36,.9 PLAN: 2 MN, non monitored bed ok IV vanc started Add ESr ID consult in AM Resume home BP meds MAy eat Await venous doppler Full code Seen at ER dw midlevel YONAS CUNHA MD Jun 03, 2019 19:49
[2019-06-03 20:05] LABS: BASO # 0.1 x10^3/uL (0.0-0.2); BASO % 1 % (0-3); EOS # 0.2 x10^3/uL (0.0-0.7); EOS % 3 % (0-3); HEMOGLOBIN 15.1 g/dL (13.0-17.5); LYMPH # 1.7 x10^3/uL (1.0-4.8); LYMPH % 22 % (24-48); MEAN CORPUSCULAR HEMOGLOBIN 29 pg (25-35); MEAN CORPUSCULAR HGB CONC 34 g/dL (31-37); MEAN CORPUSCULAR VOLUME 86 fL (79-100); MONO % 13 % (0-9); NEUT # 4.8 x10^3/uL (1.8-7.7); NEUT % 62 % (31-73); PLATELET COUNT 247 x10^3/uL (140-400); RED BLOOD COUNT 5.14 x10^6/uL (4.30-5.70); RED CELL DISTRIBUTION WIDTH 13.1 % (11.5-14.5); WHITE BLOOD COUNT 7.7 x10^3/uL (4.0-11.0)
[2019-06-03 20:06] LABS: CALCIUM 9.1 mg/dL (8.5-10.1); CREATININE 0.9 mg/dL (0.7-1.3); GFR 95.5; POTASSIUM 3.7 mmol/L (3.5-5.1)
--- NOTE | 2019-06-03 20:09 | RAD ---
Exam: Right lower extremity venous duplex study INDICATION: Leg swelling TECHNIQUE: Using a combination of real-time ultrasound imaging and color-flow and pulse Doppler imaging techniques along with graded compression and augmentation, duplex evaluation of the deep venous systems of rightlower extremity was performed. Multiple images were obtained. Findings: There is no sonographic evidence for deep venous thrombosis involving the visualized deep venous structures of the right lower extremity. IMPRESSION: No acute DVT in the right lower extremity. Electronically signed by: Robby Garcia MD (06/03/2019 8:06 PM) [facility]
[2019-06-03 20:12] LABS: ALBUMIN 3.5 g/dL (3.4-5.0); ALBUMIN/GLOBULIN RATIO 0.8 (1.0-1.7); TOTAL BILIRUBIN 0.6 mg/dL (0.2-1.0); TOTAL PROTEIN 7.7 g/dL (6.4-8.2)
[2019-06-03 20:45] VITALS: BP 157/90
--- NOTE | 2019-06-03 21:00 | NUR ---
Received patient from ER to room 414 per wheelchair.Admitting diagnosis cellulitis of right leg. Patient is A&Ox4.Patient has NKA. Patient lives at home with his parents. Patient has cellulitis of his right leg Skin is reddened and has several small blisters present. Patient's only history is HTN.Will continue to monitor.
--- NOTE | 2019-06-03 21:17 | NUR ---
Pharmacy Vancomycin Dosing Note S: Consulted to monitor and dose vancomycin started 06/03/19. O: ANDRE BOO is a 38 year old M with Cellulitis. LABS: Last BUN: 14 Last Creatinine: 0.9 Creatinine Clearance: >100 mL/min Last WBC: 7.7 Tmax (past 24 hours): AFEBRILE Vancomycin Dosing: Dosing Weight: Actual Target Trough: 10-20 A: Based on: VANCO dosing guidelines P: 1. Begin Vancomycin 2000mg LOAD dose, then 1500 mg IV q8h 2. Follow up Trough level on 06/04/19 at 1930 3. Pharmacy will continue to monitor, follow and adjust therapy as needed. MADELINE GARCIA, [facility], 06/03/19 [id number]
[2019-06-03] MEDS: ATORVASTATIN CALCIUM 20 MG TABLET PO SCH (22:57)
[2019-06-03] MEDS: METOPROLOL TART IMMED RELEASE 50 MG TABLET. PO SCH (22:58)
[2019-06-03 23:14] VITALS: BP 157/86
[2019-06-04 03:00] VITALS: BP 158/92
[2019-06-04] MEDS ORDERED: VANCOMYCIN 1.5 GM in IV NORMAL SALINE 500ML BAG 500 ML IV SCH (04:00)
[2019-06-04 07:00] VITALS: BP 157/93
[2019-06-04] MEDS: TRIAMTERENE/HCTZ 37.5/25MG TABLET. PO SCH (08:29)
[2019-06-04] MEDS: METOPROLOL TART IMMED RELEASE 50 MG TABLET. PO SCH ×2 (08:30→20:48)
[2019-06-04] MEDS: amLODIPine BESYLATE 10 MG TABLET PO SCH (08:31)
[2019-06-04] MEDS: LISINOPRIL 20 MG TABLET PO SCH (08:32)
[2019-06-04 11:00] VITALS: BP 152/93
--- NOTE | 2019-06-04 11:10 | PDOC ---
PROGRESS NOTES History of Present Illness History of Present Illness VTE Prophylaxis Ordered VTE Prophylaxis Devices: Yes VTE Pharmacological Prophylaxi: Yes Assessment/Plan Assessment/Plan RT leg cellulitis, no skin breaks Athelet/s foot HTN fair control Obesity BMI 36,.9 PLAN: 2 MN, admit IV vanc started Add ESr ID consult Resume home BP meds MAy eat Await venous doppler Full code Vitals Vitals Vital Signs Date Time Temp Pulse Resp B/P (MAP) Pulse Ox O2 Delivery O2 Flow Rate FiO2 06/04/19 08:32 69 157/93 06/04/19 08:00 Room Air 06/04/19 07:00 98.0 16 98 98.0 Physical Exam General: Alert, Oriented X3, Cooperative, No acute distress Lungs: Clear Abdomen: Normal bowel sounds, Soft, No tenderness, No hepatosplenomegaly, No masses Extremities: No clubbing, No cyanosis, No edema, Normal pulses, No tenderness/swelling Skin: Other (rt leg rash, ,maculopapulrar, elevated, appreciable to touch, no skin breaks, bad smelly foot, poor hygiene, no skin breaks, baseline red bed) Labs LABS OB: 1980 LOCATION: ER AGE: 38 SEX: M EXAM STATUS: REG ER ORD. PHYSICIAN: PETAR ALBERT APRN REASON: swelling PROCEDURE: VENOUS LOWER EXTREMITY RIGHT Exam: Right lower extremity venous duplex study INDICATION: Leg swelling TECHNIQUE: Using a combination of real-time ultrasound imaging and color-flow and pulse Doppler imaging techniques along with graded compression and augmentation, duplex evaluation of the deep venous systems of rightlower extremity was performed. Multiple images were obtained. Findings: There is no sonographic evidence for deep venous thrombosis involving the visualized deep venous structures of the right lower extremity. IMPRESSION: No acute DVT in the right lower extremity. Electronically signed by: Robby Garcia MD (06/03/2019 8:06 PM) [facility] Laboratory Tests Test 06/03/19 19:35 White Blood Count 7.7 x10^3/uL (4.0-11.0) Red Blood Count 5.14 x10^6/uL (4.30-5.70) Hemoglobin 15.1 g/dL (13.0-17.5) Hematocrit 44.0 % (39.0-53.0) Mean Corpuscular Volume 86 fL (79-100) Mean Corpuscular Hemoglobin 29 pg (25-35) Mean Corpuscular Hemoglobin Concent 34 g/dL (31-37) Red Cell Distribution Width 13.1 % (11.5-14.5) Platelet Count 247 x10^3/uL (140-400) Neutrophils (%) (Auto) 62 % (31-73) Lymphocytes (%) (Auto) 22 % (24-48) Monocytes (%) (Auto) 13 % (0-9) Eosinophils (%) (Auto) 3 % (0-3) Basophils (%) (Auto) 1 % (0-3) Neutrophils # (Auto) 4.8 x10^3/uL (1.8-7.7) Lymphocytes # (Auto) 1.7 x10^3/uL (1.0-4.8) Monocytes # (Auto) 1.0 x10^3/uL (0.0-1.1) Eosinophils # (Auto) 0.2 x10^3/uL (0.0-0.7) Basophils # (Auto) 0.1 x10^3/uL (0.0-0.2) Erythrocyte Sedimentation Rate 21 (0-15) Sodium Level 140 mmol/L (136-145) Potassium Level 3.7 mmol/L (3.5-5.1) Chloride Level 102 mmol/L (98-107) Carbon Dioxide Level 29 mmol/L (21-32) Anion Gap 9 (6-14) Blood Urea Nitrogen 14 mg/dL (8-26) Creatinine 0.9 mg/dL (0.7-1.3) Estimated GFR (Cockcroft-Gault) 95.5 BUN/Creatinine Ratio 16 (6-20) Glucose Level 87 mg/dL (70-99) Lactic Acid Level 1.1 mmol/L (0.4-2.0) Calcium Level 9.1 mg/dL (8.5-10.1) Total Bilirubin 0.6 mg/dL (0.2-1.0) Aspartate Amino Transf (AST/SGOT) 20 U/L (15-37) Alanine Aminotransferase (ALT/SGPT) 30 U/L (16-63) Alkaline Phosphatase 106 U/L (46-116) Total Protein 7.7 g/dL (6.4-8.2) Albumin 3.5 g/dL (3.4-5.0) Albumin/Globulin Ratio 0.8 (1.0-1.7) Comment Review of Relevant I have reviewed the following items leyla (where applicable) has been applied. Labs Laboratory Tests Test 06/03/19 19:35 White Blood Count 7.7 x10^3/uL (4.0-11.0) Red Blood Count 5.14 x10^6/uL (4.30-5.70) Hemoglobin 15.1 g/dL (13.0-17.5) Hematocrit 44.0 % (39.0-53.0) Mean Corpuscular Volume 86 fL (79-100) Mean Corpuscular Hemoglobin 29 pg (25-35) Mean Corpuscular Hemoglobin Concent 34 g/dL (31-37) Red Cell Distribution Width 13.1 % (11.5-14.5) Platelet Count 247 x10^3/uL (140-400) Neutrophils (%) (Auto) 62 % (31-73) Lymphocytes (%) (Auto) 22 % (24-48) Monocytes (%) (Auto) 13 % (0-9) Eosinophils (%) (Auto) 3 % (0-3) Basophils (%) (Auto) 1 % (0-3) Neutrophils # (Auto) 4.8 x10^3/uL (1.8-7.7) Lymphocytes # (Auto) 1.7 x10^3/uL (1.0-4.8) Monocytes # (Auto) 1.0 x10^3/uL (0.0-1.1) Eosinophils # (Auto) 0.2 x10^3/uL (0.0-0.7) Basophils # (Auto) 0.1 x10^3/uL (0.0-0.2) Erythrocyte Sedimentation Rate 21 (0-15) Sodium Level 140 mmol/L (136-145) Potassium Level 3.7 mmol/L (3.5-5.1) Chloride Level 102 mmol/L (98-107) Carbon Dioxide Level 29 mmol/L (21-32) Anion Gap 9 (6-14) Blood Urea Nitrogen 14 mg/dL (8-26) Creatinine 0.9 mg/dL (0.7-1.3) Estimated GFR (Cockcroft-Gault) 95.5 BUN/Creatinine Ratio 16 (6-20) Glucose Level 87 mg/dL (70-99) Lactic Acid Level 1.1 mmol/L (0.4-2.0) Calcium Level 9.1 mg/dL (8.5-10.1) Total Bilirubin 0.6 mg/dL (0.2-1.0) Aspartate Amino Transf (AST/SGOT) 20 U/L (15-37) Alanine Aminotransferase (ALT/SGPT) 30 U/L (16-63) Alkaline Phosphatase 106 U/L (46-116) Total Protein 7.7 g/dL (6.4-8.2) Albumin 3.5 g/dL (3.4-5.0) Albumin/Globulin Ratio 0.8 (1.0-1.7) Laboratory Tests Test 06/03/19 19:35 White Blood Count 7.7 x10^3/uL (4.0-11.0) Red Blood Count 5.14 x10^6/uL (4.30-5.70) Hemoglobin 15.1 g/dL (13.0-17.5) Hematocrit 44.0 % (39.0-53.0) Mean Corpuscular Volume 86 fL (79-100) Mean Corpuscular Hemoglobin 29 pg (25-35) Mean Corpuscular Hemoglobin Concent 34 g/dL (31-37) Red Cell Distribution Width 13.1 % (11.5-14.5) Platelet Count 247 x10^3/uL (140-400) Neutrophils (%) (Auto) 62 % (31-73) Lymphocytes (%) (Auto) 22 % (24-48) Monocytes (%) (Auto) 13 % (0-9) Eosinophils (%) (Auto) 3 % (0-3) Basophils (%) (Auto) 1 % (0-3) Neutrophils # (Auto) 4.8 x10^3/uL (1.8-7.7) Lymphocytes # (Auto) 1.7 x10^3/uL (1.0-4.8) Monocytes # (Auto) 1.0 x10^3/uL (0.0-1.1) Eosinophils # (Auto) 0.2 x10^3/uL (0.0-0.7) Basophils # (Auto) 0.1 x10^3/uL (0.0-0.2) Erythrocyte Sedimentation Rate 21 (0-15) Sodium Level 140 mmol/L (136-145) Potassium Level 3.7 mmol/L (3.5-5.1) Chloride Level 102 mmol/L (98-107) Carbon Dioxide Level 29 mmol/L (21-32) Anion Gap 9 (6-14) Blood Urea Nitrogen 14 mg/dL (8-26) Creatinine 0.9 mg/dL (0.7-1.3) Estimated GFR (Cockcroft-Gault) 95.5 BUN/Creatinine Ratio 16 (6-20) Glucose Level 87 mg/dL (70-99) Lactic Acid Level 1.1 mmol/L (0.4-2.0) Calcium Level 9.1 mg/dL (8.5-10.1) Total Bilirubin 0.6 mg/dL (0.2-1.0) Aspartate Amino Transf (AST/SGOT) 20 U/L (15-37) Alanine Aminotransferase (ALT/SGPT) 30 U/L (16-63) Alkaline Phosphatase 106 U/L (46-116) Total Protein 7.7 g/dL (6.4-8.2) Albumin 3.5 g/dL (3.4-5.0) Albumin/Globulin Ratio 0.8 (1.0-1.7) Medications Current Medications Sodium Chloride 1,000 ml @ 1,000 mls/hr 1X ONCE IV Last administered on 06/03/19at 19:42; Start 06/03/19 at 18:30; Stop 06/03/19 at 19:29; Status DC Vancomycin HCl (Vanco Per Pharmacy) 1 each PRN DAILY PRN MC SEE COMMENTS Last administered on 06/03/19at 21:14; Start 06/03/19 at 18:30 Fentanyl Citrate (Fentanyl 2ml Vial) 50 mcg 1X ONCE IVP ; Start 06/03/19 at 18:45; Stop 06/03/19 at 18:46; Status DC Vancomycin HCl 2 gm/Sodium Chloride 500 ml @ 250 mls/hr Q24H IV Last administered on 06/03/19at 19:25; Start 06/03/19 at 19:00; Stop 06/03/19 at 20:59; Status DC Ondansetron HCl (Zofran) 4 mg PRN Q8HRS PRN IV NAUSEA/VOMITING; Start 06/03/19 at 19:15; Stop 06/04/19 at 19:14 Fentanyl Citrate (Fentanyl 2ml Vial) 50 mcg PRN Q1HR PRN IV PAIN; Start 06/03/19 at 19:15; Stop 06/03/19 at 19:46; Status DC Acetaminophen (Tylenol) 650 mg PRN Q4HRS PRN PO FEVER; Start 06/03/19 at 19:15; Stop 06/03/19 at 19:46; Status DC Acetaminophen (Tylenol) 500 mg PRN Q6HRS PRN PO MILD PAIN / TEMP; Start 06/03/19 at 19:45 Acetaminophen/ Codeine Phosphate (Tylenol #3) 1 tab PRN Q6HRS PRN PO MODERATE PAIN; Start 06/03/19 at 19:45 Fentanyl Citrate (Fentanyl 2ml Vial) 50 mcg PRN Q2HR PRN IVP PAIN; Start 06/03/19 at 19:45 Zolpidem Tartrate (Ambien) 5 mg PRN QHS PRN PO INSOMNIA; Start 06/03/19 at 19:45 Amlodipine Besylate (Norvasc) 10 mg DAILY PO Last administered on 06/04/19at 08:31; Start 06/04/19 at 09:00 Metoprolol Tartrate (Lopressor) 50 mg BID PO Last administered on 06/04/19at 08:30; Start 06/03/19 at 21:00 Lisinopril (Prinivil) 40 mg DAILY PO Last administered on 06/04/19at 08:32; Start 06/04/19 at 09:00 Atorvastatin Calcium (Lipitor) 20 mg QHS PO Last administered on 06/03/19at 22:57; Start 06/03/19 at 21:00 Triamterene/HCTZ (Maxzide 37.5/ 25mg) 1 tab DAILY PO Last administered on 06/04/19at 08:29; Start 06/04/19 at 09:00 Clonidine HCl (Catapres) 0.1 mg PRN Q1HR PRN PO HYPERTENSION; Start 06/03/19 at 19:45 Vancomycin HCl 1.5 gm/Sodium Chloride 500 ml @ 250 mls/hr Q8H IV Last administered on 06/04/19at 04:18; Start 06/04/19 at 04:00 Vancomycin HCl (Vancomycin Trough Level) 1 each 1X ONCE MC ; Start 06/04/19 at 19:30; Stop 06/04/19 at 19:31 Lactobacillus Rhamnosus (Culturelle) 1 cap BID PO ; Start 06/04/19 at 21:00 Active Scripts Active Reported Lisinopril 10 Mg Tablet 10 Mg PO DAILY Metoprolol Tartrate 50 Mg Tablet 50 Mg PO BID Norvasc (Amlodipine Besylate) 10 Mg Tablet 10 Mg PO DAILY Vitals/I & O Vital Sign - Last 24 Hours 06/03/19 06/03/19 06/03/19 06/03/19 17:44 19:15 20:30 20:45 Temp 98.6 98.3 98.6 98.3 Pulse 73 74 81 74 Resp 16 18 17 18 B/P (MAP) 170/95 (120) 145/74 (97) 152/78 (102) 157/90 (112) Pulse Ox 100 98 98 95 O2 Delivery Room Air Room Air Room Air Room Air 06/03/19 06/03/19 06/03/19 06/04/19 22:30 22:58 23:14 03:00 Temp 98.3 98.4 98.3 98.4 Pulse 74 80 73 Resp 18 18 B/P (MAP) 157/90 157/86 (109) 158/92 (114) Pulse Ox 96 95 O2 Delivery Room Air Room Air Room Air 06/04/19 06/04/19 06/04/19 06/04/19 07:00 08:00 08:30 08:31 Temp 98.0 98.0 Pulse 91 69 69 Resp 16 B/P (MAP) 157/93 (114) 157/93 157/93 Pulse Ox 98 O2 Delivery Room Air Room Air 06/04/19 08:32 Pulse 69 B/P (MAP) 157/93 Intake and Output 06/03/19 06/03/19 06/04/19 15:00 23:00 07:00 Intake Total 600 ml Balance 600 ml CAS TINOCO MD Jun 04, 2019 11:10
--- NOTE | 2019-06-04 12:27 | NUR ---
SS following for discharge planning. SS reviewed pt chart. Pt is from home and is currently on room air. SS will continue to follow for discharge planning.
[2019-06-04] MEDS: cefTRIAXone IV Push 2 GM VIAL. IVP SCH (13:36)
[2019-06-04] MEDS: FLUCONAZOLE 100 MG TABLET. PO SCH (13:36)
[2019-06-04 15:00] VITALS: BP 141/84
--- NOTE | 2019-06-04 16:53 | NUR ---
Wound Care: Wound care consult for RLE cellulitis. R lower leg noted with intact blisters, dry skin and edema, no open areas upon assessment. Xeroform, abd and kerlix applied to blisters for protection. Wound care will sign off for now, contact wound care if open areas develop.
[2019-06-04 19:00] VITALS: BP 151/93
[2019-06-04] MEDS: LACTOBACILLUS RHAMNOSUS GG 1 CAPSULE. PO SCH (20:48)
[2019-06-04] MEDS: ATORVASTATIN CALCIUM 20 MG TABLET PO SCH (20:48)
--- NOTE | 2019-06-04 21:01 | CONS ---
DATE OF CONSULTATION: 06/04/2019 REFERRING PHYSICIAN: Codi Ryder MD REASON FOR CONSULTATION: Right lower extremity cellulitis. HISTORY OF PRESENT ILLNESS: A 38-year-old male who presented to the ER on 06/03/2019 with complaints of right lower leg swelling, pain, redness, which started 3 days ago prior to admission, he had trouble walking. He denied any history of injury. His white count was normal. He was afebrile. He underwent Doppler ultrasound of the right lower extremity shows negative for DVT. He was started on IV vancomycin. ID consult has been requested for antibiotic management. Today, the patient states he still has pain and swelling, does have blisters which are non-draining. He denies any fevers, chills, nausea, vomiting, diarrhea, abdominal pain. Denies any shortness of breath. He still has trouble with pain whenever he walks. PAST MEDICAL HISTORY: Hypertension. CURRENT MEDICATION: IV vancomycin. REVIEW OF SYSTEMS: Negative except for above in HPI. ALLERGIES: No known drug allergies. SOCIAL HISTORY: Denies smoking, ETOH, or illicit drug use. 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 Has a cat. PHYSICAL EXAMINATION: VITAL SIGNS: Temperature 98.6, pulse 74, respiratory rate 18, blood pressure 145/74, oxygen saturation 98% on room air. GENERAL: Alert and oriented x 3 male lying in bed comfortably, in no acute distress. HEENT: Normocephalic, atraumatic. Anicteric. NECK: Supple, no JVD. LUNGS: Clear bilaterally. HEART: S1, S2. ABDOMEN: Soft, obese. Bowel sounds present. EXTREMITIES: Right lower extremity swelling, erythema, tenderness, blisters mainly over the posterior aspect. No purulent drainage. CENTRAL NERVOUS SYSTEM: Alert and oriented x 3, grossly nonfocal. PSYCHIATRIC: Cooperative, appropriate mood and affect. DERMATOLOGIC: Warm and dry. No generalized rash except for above. LABORATORY DATA: CBC noted within normal limits. ESR 21. CMP within normal limits. IMAGING: Doppler ultrasound of the lower extremity, negative for DVT. IMPRESSION: 1. Right lower extremity cellulitis and right lower extremity pain. 2. Tinea 3. Hypertension. RECOMMENDATIONS: 1. Discontinue IV vancomycin. 2. Start Rocephin and Diflucan 3. Elevate right lower extremity. 4. Follow up labs and cultures. 5. Continue supportive care. Thank you for allowing me to participate in this patient's care. We will follow along with you. JASWINDER DIOR MD DR: MIAN/soren JOB#: [id number] / [id number] RAYMOND
[2019-06-04 23:00] VITALS: BP 144/86
[2019-06-05 03:00] VITALS: BP 143/89
[2019-06-05 05:01] LABS: CALCIUM 9.1 mg/dL (8.5-10.1); CREATININE 0.8 mg/dL (0.7-1.3); GFR 109.4; POTASSIUM 3.6 mmol/L (3.5-5.1)
[2019-06-05 07:15] VITALS: BP 162/96
[2019-06-05] MEDS: METOPROLOL TART IMMED RELEASE 50 MG TABLET. PO SCH ×2 (08:09→20:28)
[2019-06-05] MEDS: TRIAMTERENE/HCTZ 37.5/25MG TABLET. PO SCH (08:09)
[2019-06-05] MEDS: FLUCONAZOLE 100 MG TABLET. PO SCH (08:10)
[2019-06-05] MEDS: amLODIPine BESYLATE 10 MG TABLET PO SCH (08:10)
[2019-06-05] MEDS: LACTOBACILLUS RHAMNOSUS GG 1 CAPSULE. PO SCH ×2 (08:10→20:32)
[2019-06-05] MEDS: LISINOPRIL 20 MG TABLET PO SCH (08:11)
--- NOTE | 2019-06-05 09:00 | PDOC ---
Infectious Disease Note Subjective: Subjective pt feels a little better less swelling and redness,still has pain but improving no f/c/n/v/d Vital Signs: Vital Signs Vital Signs Date Time Temp Pulse Resp B/P (MAP) Pulse Ox O2 Delivery O2 Flow Rate FiO2 06/05/19 08:11 65 162/96 06/05/19 07:15 97.6 18 96 Room Air 97.6 Physical Exam: PHYSICAL EXAM GENERAL: Alert and oriented x 3 male lying in bed comfortably, in no acute distress. HEENT: Normocephalic, atraumatic. Anicteric. NECK: Supple, no JVD. LUNGS: Clear bilaterally. HEART: S1, S2. ABDOMEN: Soft, obese. Bowel sounds present. EXTREMITIES: Right lower extremity swelling, erythema, tenderness, blisters mainly over the posterior aspect. No purulent drainage. CENTRAL NERVOUS SYSTEM: Alert and oriented x 3, grossly nonfocal. PSYCHIATRIC: Cooperative, appropriate mood and affect. DERMATOLOGIC: Warm and dry. No generalized rash except for above. Medications: Inpatient Meds: Current Medications Medications (Trade) Dose Ordered Sig/Connie Start Time Stop Time Status Last Admin Dose Admin Acetaminophen (Tylenol) 500 mg PRN Q6HRS PRN 06/03/19 19:45 Acetaminophen/ Codeine Phosphate (Tylenol #3) 1 tab PRN Q6HRS PRN 06/03/19 19:45 Amlodipine Besylate (Norvasc) 10 mg DAILY 06/04/19 09:00 06/05/19 08:10 10 MG Atorvastatin Calcium (Lipitor) 20 mg QHS 06/03/19 21:00 06/04/19 20:48 20 MG Ceftriaxone Sodium (Rocephin) 2 gm Q24H 06/04/19 13:00 06/04/19 13:36 2 GM Clonidine HCl (Catapres) 0.1 mg PRN Q1HR PRN 06/03/19 19:45 Fentanyl Citrate (Fentanyl 2ml Vial) 50 mcg PRN Q2HR PRN 06/03/19 19:45 Fluconazole (Diflucan) 100 mg DAILY 06/04/19 13:00 06/05/19 08:10 100 MG Lactobacillus Rhamnosus (Culturelle) 1 cap BID 06/04/19 21:00 06/05/19 08:10 1 CAP Lisinopril (Prinivil) 40 mg DAILY 06/04/19 09:00 06/05/19 08:11 40 MG Metoprolol Tartrate (Lopressor) 50 mg BID 06/03/19 21:00 06/05/19 08:09 50 MG Ondansetron HCl (Zofran) 4 mg PRN Q8HRS PRN 06/03/19 19:15 06/04/19 19:14 DC Sodium Chloride 1,000 ml @ 1,000 mls/hr 1X ONCE 06/03/19 18:30 06/03/19 19:29 DC 06/03/19 19:42 1,000 MLS/HR Triamterene/HCTZ (Maxzide 37.5/ 25mg) 1 tab DAILY 06/04/19 09:00 06/05/19 08:09 1 TAB Vancomycin HCl (Vanco Per Pharmacy) 1 each PRN DAILY PRN 06/03/19 18:30 06/04/19 12:35 DC 06/03/19 21:14 1 EACH Vancomycin HCl (Vancomycin Trough Level) 1 each 1X ONCE 06/04/19 19:30 06/04/19 12:28 DC Vancomycin HCl 1.5 gm/Sodium Chloride 500 ml @ 250 mls/hr Q8H 06/04/19 04:00 06/04/19 12:28 DC 06/04/19 04:18 250 MLS/HR Vancomycin HCl 2 gm/Sodium Chloride 500 ml @ 250 mls/hr Q24H 06/03/19 19:00 06/03/19 20:59 DC 06/03/19 19:25 250 MLS/HR Zolpidem Tartrate (Ambien) 5 mg PRN QHS PRN 06/03/19 19:45 Labs: Lab Laboratory Tests Test 06/05/19 03:50 Sodium Level 140 mmol/L (136-145) Potassium Level 3.6 mmol/L (3.5-5.1) Chloride Level 103 mmol/L (98-107) Carbon Dioxide Level 27 mmol/L (21-32) Anion Gap 10 (6-14) Blood Urea Nitrogen 14 mg/dL (8-26) Creatinine 0.8 mg/dL (0.7-1.3) Estimated GFR (Cockcroft-Gault) 109.4 Glucose Level 86 mg/dL (70-99) Calcium Level 9.1 mg/dL (8.5-10.1) Objective: Assessment: 1. Right lower extremity cellulitis improving 2. Tinea 3. Hypertension. Plan: Plan of Care cont Rocephin/ Diflucan Elevate right lower extremity. Follow up labs and cultures. Continue supportive care. hopefully will be able to dc home tomorrow JASWINDER DIOR MD Jun 05, 2019 09:00
[2019-06-05 11:04] VITALS: BP 134/89
--- NOTE | 2019-06-05 13:12 | PDOC ---
PROGRESS NOTES Chief Complaint Chief Complaint RT leg cellulitis, no skin breaks Athelet/s foot HTN controlled Obesity BMI 36,.9 History of Present Illness History of Present Illness rt leg getting better ESR only 20s NO fevers normal WBC SLated for dc tmr per pt relay from ID BC neg prelim x 1 day PLAN: TArget dc tmr on PO abx HAS NEVER BEEN ON ABX SURGICAL SERVICES TECH Vitals Vitals Vital Signs Date Time Temp Pulse Resp B/P (MAP) Pulse Ox O2 Delivery O2 Flow Rate FiO2 06/05/19 11:04 98.3 70 20 134/89 (104) 96 Room Air 98.3 Physical Exam Physical Exam GENERAL: Alert and oriented x 3 male lying in bed comfortably, in no acute distress. HEENT: Normocephalic, atraumatic. Anicteric. NECK: Supple, no JVD. LUNGS: Clear bilaterally. HEART: S1, S2. ABDOMEN: Soft, obese. Bowel sounds present. EXTREMITIES: Right lower extremity swelling, erythema, tenderness, blisters mainly over the posterior aspect. No purulent drainage. CENTRAL NERVOUS SYSTEM: Alert and oriented x 3, grossly nonfocal. PSYCHIATRIC: Cooperative, appropriate mood and affect. DERMATOLOGIC: Warm and dry. No generalized rash except for above. General: Alert, Oriented X3, Cooperative, No acute distress Lungs: Clear Abdomen: Normal bowel sounds, Soft, No tenderness, No hepatosplenomegaly, No masses Extremities: No clubbing, No cyanosis, No edema, Normal pulses, No tenderness/swelling Skin: Other (rt leg rash, ,maculopapulrar, elevated, appreciable to touch, no skin breaks, bad smelly foot, poor hygiene, no skin breaks, baseline red bed) Labs LABS Laboratory Tests Test 06/05/19 03:50 Sodium Level 140 mmol/L (136-145) Potassium Level 3.6 mmol/L (3.5-5.1) Chloride Level 103 mmol/L (98-107) Carbon Dioxide Level 27 mmol/L (21-32) Anion Gap 10 (6-14) Blood Urea Nitrogen 14 mg/dL (8-26) Creatinine 0.8 mg/dL (0.7-1.3) Estimated GFR (Cockcroft-Gault) 109.4 Glucose Level 86 mg/dL (70-99) Calcium Level 9.1 mg/dL (8.5-10.1) Review of Systems Review of Systems neg 14 pt reviewd Comment Review of Relevant I have reviewed the following items leyla (where applicable) has been applied. Labs Laboratory Tests Test 06/03/19 19:35 06/05/19 03:50 White Blood Count 7.7 x10^3/uL (4.0-11.0) Red Blood Count 5.14 x10^6/uL (4.30-5.70) Hemoglobin 15.1 g/dL (13.0-17.5) Hematocrit 44.0 % (39.0-53.0) Mean Corpuscular Volume 86 fL (79-100) Mean Corpuscular Hemoglobin 29 pg (25-35) Mean Corpuscular Hemoglobin Concent 34 g/dL (31-37) Red Cell Distribution Width 13.1 % (11.5-14.5) Platelet Count 247 x10^3/uL (140-400) Neutrophils (%) (Auto) 62 % (31-73) Lymphocytes (%) (Auto) 22 % (24-48) Monocytes (%) (Auto) 13 % (0-9) Eosinophils (%) (Auto) 3 % (0-3) Basophils (%) (Auto) 1 % (0-3) Neutrophils # (Auto) 4.8 x10^3/uL (1.8-7.7) Lymphocytes # (Auto) 1.7 x10^3/uL (1.0-4.8) Monocytes # (Auto) 1.0 x10^3/uL (0.0-1.1) Eosinophils # (Auto) 0.2 x10^3/uL (0.0-0.7) Basophils # (Auto) 0.1 x10^3/uL (0.0-0.2) Erythrocyte Sedimentation Rate 21 (0-15) Sodium Level 140 mmol/L (136-145) 140 mmol/L (136-145) Potassium Level 3.7 mmol/L (3.5-5.1) 3.6 mmol/L (3.5-5.1) Chloride Level 102 mmol/L (98-107) 103 mmol/L (98-107) Carbon Dioxide Level 29 mmol/L (21-32) 27 mmol/L (21-32) Anion Gap 9 (6-14) 10 (6-14) Blood Urea Nitrogen 14 mg/dL (8-26) 14 mg/dL (8-26) Creatinine 0.9 mg/dL (0.7-1.3) 0.8 mg/dL (0.7-1.3) Estimated GFR (Cockcroft-Gault) 95.5 109.4 BUN/Creatinine Ratio 16 (6-20) Glucose Level 87 mg/dL (70-99) 86 mg/dL (70-99) Lactic Acid Level 1.1 mmol/L (0.4-2.0) Calcium Level 9.1 mg/dL (8.5-10.1) 9.1 mg/dL (8.5-10.1) Total Bilirubin 0.6 mg/dL (0.2-1.0) Aspartate Amino Transf (AST/SGOT) 20 U/L (15-37) Alanine Aminotransferase (ALT/SGPT) 30 U/L (16-63) Alkaline Phosphatase 106 U/L (46-116) Total Protein 7.7 g/dL (6.4-8.2) Albumin 3.5 g/dL (3.4-5.0) Albumin/Globulin Ratio 0.8 (1.0-1.7) Laboratory Tests Test 06/05/19 03:50 Sodium Level 140 mmol/L (136-145) Potassium Level 3.6 mmol/L (3.5-5.1) Chloride Level 103 mmol/L (98-107) Carbon Dioxide Level 27 mmol/L (21-32) Anion Gap 10 (6-14) Blood Urea Nitrogen 14 mg/dL (8-26) Creatinine 0.8 mg/dL (0.7-1.3) Estimated GFR (Cockcroft-Gault) 109.4 Glucose Level 86 mg/dL (70-99) Calcium Level 9.1 mg/dL (8.5-10.1) Microbiology 06/03/19 Blood Culture - Preliminary, Resulted NO GROWTH AFTER 1 DAY Medications Current Medications Sodium Chloride 1,000 ml @ 1,000 mls/hr 1X ONCE IV Last administered on 06/03/19at 19:42; Start 06/03/19 at 18:30; Stop 06/03/19 at 19:29; Status DC Vancomycin HCl (Vanco Per Pharmacy) 1 each PRN DAILY PRN MC SEE COMMENTS Last administered on 06/03/19at 21:14; Start 06/03/19 at 18:30; Stop 06/04/19 at 12:35; Status DC Fentanyl Citrate (Fentanyl 2ml Vial) 50 mcg 1X ONCE IVP ; Start 06/03/19 at 18:45; Stop 06/03/19 at 18:46; Status DC Vancomycin HCl 2 gm/Sodium Chloride 500 ml @ 250 mls/hr Q24H IV Last administered on 06/03/19at 19:25; Start 06/03/19 at 19:00; Stop 06/03/19 at 20:59; Status DC Ondansetron HCl (Zofran) 4 mg PRN Q8HRS PRN IV NAUSEA/VOMITING; Start 06/03/19 at 19:15; Stop 06/04/19 at 19:14; Status DC Fentanyl Citrate (Fentanyl 2ml Vial) 50 mcg PRN Q1HR PRN IV PAIN; Start 06/03/19 at 19:15; Stop 06/03/19 at 19:46; Status DC Acetaminophen (Tylenol) 650 mg PRN Q4HRS PRN PO FEVER; Start 06/03/19 at 19:15; Stop 06/03/19 at 19:46; Status DC Acetaminophen (Tylenol) 500 mg PRN Q6HRS PRN PO MILD PAIN / TEMP; Start 06/03/19 at 19:45 Acetaminophen/ Codeine Phosphate (Tylenol #3) 1 tab PRN Q6HRS PRN PO MODERATE PAIN; Start 06/03/19 at 19:45 Fentanyl Citrate (Fentanyl 2ml Vial) 50 mcg PRN Q2HR PRN IVP PAIN; Start 06/03/19 at 19:45 Zolpidem Tartrate (Ambien) 5 mg PRN QHS PRN PO INSOMNIA; Start 06/03/19 at 19:45 Amlodipine Besylate (Norvasc) 10 mg DAILY PO Last administered on 06/05/19at 08:10; Start 06/04/19 at 09:00 Metoprolol Tartrate (Lopressor) 50 mg BID PO Last administered on 06/05/19at 08:09; Start 06/03/19 at 21:00 Lisinopril (Prinivil) 40 mg DAILY PO Last administered on 06/05/19at 08:11; Start 06/04/19 at 09:00 Atorvastatin Calcium (Lipitor) 20 mg QHS PO Last administered on 06/04/19at 20:48; Start 06/03/19 at 21:00 Triamterene/HCTZ (Maxzide 37.5/ 25mg) 1 tab DAILY PO Last administered on 06/05/19at 08:09; Start 06/04/19 at 09:00 Clonidine HCl (Catapres) 0.1 mg PRN Q1HR PRN PO HYPERTENSION; Start 06/03/19 at 19:45 Vancomycin HCl 1.5 gm/Sodium Chloride 500 ml @ 250 mls/hr Q8H IV Last administered on 06/04/19at 04:18; Start 06/04/19 at 04:00; Stop 06/04/19 at 12:28; Status DC Vancomycin HCl (Vancomycin Trough Level) 1 each 1X ONCE MC ; Start 06/04/19 at 19:30; Stop 06/04/19 at 12:28; Status DC Lactobacillus Rhamnosus (Culturelle) 1 cap BID PO Last administered on 06/05/19 08:10; Start 06/04/19 at 21:00 Fluconazole (Diflucan) 100 mg DAILY PO Last administered on 06/05/19at 08:10; Start 06/04/19 at 13:00 Ceftriaxone Sodium (Rocephin) 2 gm Q24H IVP Last administered on 06/04/19at 13:36; Start 06/04/19 at 13:00 Active Scripts Active Reported Lisinopril 10 Mg Tablet 10 Mg PO DAILY Metoprolol Tartrate 50 Mg Tablet 50 Mg PO BID Norvasc (Amlodipine Besylate) 10 Mg Tablet 10 Mg PO DAILY Vitals/I & O Vital Sign - Last 24 Hours 06/04/19 06/04/19 06/04/19 06/04/19 15:00 19:00 20:00 20:48 Temp 97.8 97.7 97.8 97.7 Pulse 68 70 70 Resp 16 18 B/P (MAP) 141/84 (103) 151/93 (112) 151/93 Pulse Ox 97 96 O2 Delivery Room Air Room Air Room Air 06/04/19 06/05/19 06/05/19 06/05/19 23:00 03:00 07:15 08:00 Temp 98.0 97.9 97.6 98.0 97.9 97.6 Pulse 68 68 65 Resp 18 18 18 B/P (MAP) 144/86 (105) 143/89 (107) 162/96 (118) Pulse Ox 97 97 96 O2 Delivery Room Air Room Air Room Air Room Air 06/05/19 06/05/19 06/05/19 06/05/19 08:09 08:10 08:11 11:04 Temp 98.3 98.3 Pulse 65 65 65 70 Resp 20 B/P (MAP) 162/96 162/96 162/96 134/89 (104) Pulse Ox 96 O2 Delivery Room Air Intake and Output 06/04/19 06/04/19 06/05/19 15:00 23:00 07:00 Intake Total 300 ml Balance 300 ml YONAS CUNHA MD Jun 05, 2019 13:12
[2019-06-05] MEDS: cefTRIAXone IV Push 2 GM VIAL. IVP SCH (13:42)
[2019-06-05 15:09] VITALS: BP 129/90
[2019-06-05 19:00] VITALS: BP 127/84
[2019-06-05] MEDS: ATORVASTATIN CALCIUM 20 MG TABLET PO SCH (20:27)
[2019-06-05 23:00] VITALS: BP 142/97
[2019-06-06 03:00] VITALS: BP 138/91
[2019-06-06 07:00] VITALS: BP 139/99
[2019-06-06] MEDS: METOPROLOL TART IMMED RELEASE 50 MG TABLET. PO SCH (09:16)
[2019-06-06] MEDS: amLODIPine BESYLATE 10 MG TABLET PO SCH (09:16)
[2019-06-06] MEDS: FLUCONAZOLE 100 MG TABLET. PO SCH (09:16)
[2019-06-06] MEDS: LACTOBACILLUS RHAMNOSUS GG 1 CAPSULE. PO SCH (09:17)
[2019-06-06] MEDS: LISINOPRIL 20 MG TABLET PO SCH (09:17)
[2019-06-06] MEDS: TRIAMTERENE/HCTZ 37.5/25MG TABLET. PO SCH (09:17)
[2019-06-06] MEDS ORDERED: Fluconazole PO (09:20)
[2019-06-06] MEDS ORDERED: ACET1TAB33 PO (09:20)
[2019-06-06] MEDS ORDERED: ATOR20TA58 PO (09:20)
--- NOTE | 2019-06-06 09:28 | PDOC ---
Infectious Disease Note Subjective: Subjective pt feels a little better less swelling and redness,still has pain but improving no f/c/n/v/d Vital Signs: Vital Signs Vital Signs Date Time Temp Pulse Resp B/P (MAP) Pulse Ox O2 Delivery O2 Flow Rate FiO2 06/06/19 09:17 67 138/91 06/06/19 07:00 97.9 18 96 Room Air 97.9 Physical Exam: PHYSICAL EXAM GENERAL: Alert and oriented x 3 male lying in bed comfortably, in no acute distress. HEENT: Normocephalic, atraumatic. Anicteric. NECK: Supple, no JVD. LUNGS: Clear bilaterally. HEART: S1, S2. ABDOMEN: Soft, obese. Bowel sounds present. EXTREMITIES: Right lower extremity swelling, erythema, tenderness, blisters mainly over the posterior aspect. No purulent drainage. CENTRAL NERVOUS SYSTEM: Alert and oriented x 3, grossly nonfocal. PSYCHIATRIC: Cooperative, appropriate mood and affect. DERMATOLOGIC: Warm and dry. No generalized rash except for above. Medications: Inpatient Meds: Current Medications Medications (Trade) Dose Ordered Sig/Connie Start Time Stop Time Status Last Admin Dose Admin Acetaminophen (Tylenol) 500 mg PRN Q6HRS PRN 06/03/19 19:45 Acetaminophen/ Codeine Phosphate (Tylenol #3) 1 tab PRN Q6HRS PRN 06/03/19 19:45 Amlodipine Besylate (Norvasc) 10 mg DAILY 06/04/19 09:00 06/06/19 09:16 10 MG Atorvastatin Calcium (Lipitor) 20 mg QHS 06/03/19 21:00 06/05/19 20:27 20 MG Ceftriaxone Sodium (Rocephin) 2 gm Q24H 06/04/19 13:00 06/05/19 13:42 2 GM Clonidine HCl (Catapres) 0.1 mg PRN Q1HR PRN 06/03/19 19:45 Fentanyl Citrate (Fentanyl 2ml Vial) 50 mcg PRN Q2HR PRN 06/03/19 19:45 Fluconazole (Diflucan) 100 mg DAILY 06/04/19 13:00 06/06/19 09:16 100 MG Lactobacillus Rhamnosus (Culturelle) 1 cap BID 06/04/19 21:00 06/06/19 09:17 1 CAP Lisinopril (Prinivil) 40 mg DAILY 06/04/19 09:00 06/06/19 09:17 40 MG Metoprolol Tartrate (Lopressor) 50 mg BID 06/03/19 21:00 06/06/19 09:16 50 MG Ondansetron HCl (Zofran) 4 mg PRN Q8HRS PRN 06/03/19 19:15 06/04/19 19:14 DC Sodium Chloride 1,000 ml @ 1,000 mls/hr 1X ONCE 06/03/19 18:30 06/03/19 19:29 DC 06/03/19 19:42 1,000 MLS/HR Triamterene/HCTZ (Maxzide 37.5/ 25mg) 1 tab DAILY 06/04/19 09:00 06/06/19 09:17 1 TAB Vancomycin HCl (Vanco Per Pharmacy) 1 each PRN DAILY PRN 06/03/19 18:30 06/04/19 12:35 DC 06/03/19 21:14 1 EACH Vancomycin HCl (Vancomycin Trough Level) 1 each 1X ONCE 06/04/19 19:30 06/04/19 12:28 DC Vancomycin HCl 1.5 gm/Sodium Chloride 500 ml @ 250 mls/hr Q8H 06/04/19 04:00 06/04/19 12:28 DC 06/04/19 04:18 250 MLS/HR Vancomycin HCl 2 gm/Sodium Chloride 500 ml @ 250 mls/hr Q24H 06/03/19 19:00 06/03/19 20:59 DC 06/03/19 19:25 250 MLS/HR Zolpidem Tartrate (Ambien) 5 mg PRN QHS PRN 06/03/19 19:45 Objective: Assessment: 1. Right lower extremity cellulitis improving 2. Tinea 3. Hypertension. Plan: Plan of Care cont Rocephin/ Diflucan today before dc ok to dc on po keflex and diflucan,script in chart probiotics Elevate right lower extremity. Follow up ID office if needed d/w JASWINDER PALMA MD Jun 06, 2019 09:28
--- NOTE | 2019-06-06 10:06 | PDOC3 ---
Discharge Summary Visit Information Date of Admission: Jun 03, 2019 Date of Discharge: Jun 06, 2019 Admitting Diagnosis Comment: RT leg cellulitis, no skin breaks Athelet/s foot HTN controlled Obesity BMI 36,.9 Brief Hospital Course Allergies Allergies Coded Allergies Type Severity Reaction Last Updated Verified No Known Drug Allergies 09/07/15 No Vital Signs Vital Signs Date Time Temp Pulse Resp B/P (MAP) Pulse Ox O2 Delivery O2 Flow Rate FiO2 06/06/19 09:17 67 138/91 06/06/19 07:00 97.9 18 96 Room Air 97.9 Lab Results Laboratory Tests Test 06/05/19 03:50 Sodium Level 140 mmol/L (136-145) Potassium Level 3.6 mmol/L (3.5-5.1) Chloride Level 103 mmol/L (98-107) Carbon Dioxide Level 27 mmol/L (21-32) Anion Gap 10 (6-14) Blood Urea Nitrogen 14 mg/dL (8-26) Creatinine 0.8 mg/dL (0.7-1.3) Estimated GFR (Cockcroft-Gault) 109.4 Glucose Level 86 mg/dL (70-99) Calcium Level 9.1 mg/dL (8.5-10.1) Brief Hospital Course Mr. Briggs is a 38 old [sex] who presented with [ ] 38 white Male, hTN on meds, compliant, RT leg pain and swelling since sunday and rash, noted at work NON DM, never had similar prior episodes before, BAd foot hygiene, smells of athlete's foot, LAbs are still in process - admitted for need iV abx, PCP Dr Marisol Rushing. NOn toxic appearing<VS ok. US legs not yet done but ordered COURSE: CO managed with ID , after 3 MN of IV Abx, redness better, STable for pO abx to home BC neg, afebrile,non toxic appearing, NON DM Assessment Assessment RT leg cellulitis, no skin breaks Athelet/s foot HTN controlled Obesity BMI 36,.9 Discharge Information Condition at Discharge: Improved, Stable Follow Up: Weeks (PCP if no better or ID Dr Sanjuana skinner) Disposition/Orders: D/C to Home Scheduled Amlodipine Besylate (Norvasc) 10 Mg Tablet, 10 MG PO DAILY, (Reported) Entered as Reported by: CHASE DELCID on 07/20/16 [id number] Last Action: Continued on 06/03/191943 by YONAS CUNHA Atorvastatin Calcium (Atorvastatin Calcium) 20 Mg Tablet, 20 MG PO QHS for lipids, #60 Prescribed by: YONAS CUNHA on 06/06/19919 Lisinopril (Lisinopril) 10 Mg Tablet, 10 MG PO DAILY for FOR HYPERTENSION, #30 Ref 0 (Reported) Entered as Reported by: CHASE DELCID on 07/20/161118 Last Action: Converted on 06/03/191943 by YONAS CUNHA Metoprolol Tartrate (Metoprolol Tartrate) 50 Mg Tablet, 50 MG PO BID for FOR HYPERTENSION, #60 Ref 0 (Reported) Entered as Reported by: CHASE DELCID on 07/20/161118 Last Action: Continued on 06/03/191943 by YONAS CUNHA [Fluconazole] 100 MG TABLET, 100 MG PO DAILY for tinea, #14 Prescribed by: YONAS CUNHA on 06/06/19919 Scheduled PRN Acetaminophen With Codeine (Acetaminophen-Cod #3 Tablet) 1 Each Tablet, 1 TAB PO PRN Q6HRS PRN for MODERATE PAIN, #15 Prescribed by: YONAS CUNHA on 06/06/19919 YONAS CUNHA MD Jun 06, 2019 10:06
[2019-06-06 11:00] VITALS: BP 142/94
[2019-06-06 15:00] VITALS: BP 136/83
[2019-06-06] MEDS: cefTRIAXone IV Push 2 GM VIAL. IVP SCH (15:33)
--- NOTE | 2019-06-06 19:45 | NUR ---
Discharge Note: ANDRE BOO TORNILLO Discharge instructions and discharge home medications reviewed with Patient and a copy given. All questions have been answered and understanding verbalized. Wound pictures were taken, wound dressing compleated. The following instructions and handouts were given, wound care Discontinued lines and drains Patient discharged to home with all belongings
== END 2019-06-06 16:15 | disposition home or self-care (01) | DRG 603 ==
LOC: ER 17:07 → 4 NORTH 18:41
PROVIDERS: ADMIT Internal Medicine; ATTEND Internal Medicine
DX: L03.115 Cellulitis of right lower limb (principal); B35.9 Dermatophytosis, unspecified; E66.9 Obesity, unspecified; I10 Essential (primary) hypertension; Z68.36 Body mass index [BMI] 36.0-36.9, adult; Z82.49 Family history of ischemic heart disease and other diseases of the circulatory system
CPT/HCPCS: 36415; 80048; 80053; 83605; 85025; 85651; 87040; 93971; J0696; J3370; J7030; J7040; 99285-25; G0378

== ENCOUNTER → 2019-09-26 | Outpatient (CLI) | payer OTHER ==
[~2019-09-26] MED LIST changes: +ACET1TAB33 PO; +ATOR20TA58 PO; +Fluconazole PO
--- NOTE | 2019-09-26 10:07 | RAD ---
Examination: VENOUS LOWER EXTREMITY RIGHT History: Right lower extremity edema Comparison/Correlation: None FINDINGS: Right lower extremity duplex venous ultrasound exam was performed. Grayscale, color Doppler, and spectral Doppler imaging was performed. Compression and augmentation was performed. The right common femoral vein, superficial femoral vein, popliteal vein, and saphenofemoral junction are normal with no evidence of deep venous thrombus. Visualized right calf veins are unremarkable. Normal compressibility and augmentation is evident. Subcutaneous edema is present involving the distal right lower extremity. IMPRESSION: Subcutaneous edema in the calf region. No evidence of deep venous thrombus involving the right lower extremity. Electronically signed by: Sam Cantor MD (09/26/2019 10:04 AM) [id number]
== END ==
LOC: US 09:34
PROVIDERS: ATTEND Family Medicine
DX: R60.0 Localized edema (principal)
CPT/HCPCS: 93971